=== PATIENT | female | born 1935 | race Caucasian/White ===

== ENCOUNTER 2019-04-12 14:03 | Outpatient (CLI) | payer MEDICARE, OTHER ==
[~2019-04-12 14:03] MED LIST: ASPI81TA45 PO; BOSE125T PO; CARB1TAB22 PO; DILT240C77 PO; FLUT9.9S INH; HYDR-3237 PO; LACT10SO28 PO; LACT1CAP35 PO; LANT1000 PO; LEVO88TA4 PO; LINA5TAB PO; MULT1TAB9 PO; MV-M1TAB29 PO; OMEG1CAP34 PO; OMEP-110 PO; POLY17PO5 PO; PRAV40TA2 PO; [UNRECOGNIZED DRUG - OTHER] PO
== END 2019-04-12 23:59 | disposition home or self-care (01) ==
LOC: CFH 14:03
PROVIDERS: ATTEND Internal Medicine Cardiovascular Disease
DX: I08.3 Combined rheumatic disorders of mitral, aortic and tricuspid valves (principal); I27.29 Other secondary pulmonary hypertension
CPT/HCPCS: 93306

== ENCOUNTER → 2019-09-05 | Outpatient (CLI) | payer MEDICARE, OTHER ==
[~2019-09-05] MED LIST changes: +ALPR0.5T7 PO; +CITA20TA6 PO; +ESTR0.5T3 VG; +GLIM1TAB7 PO; +IPRA3AMP30 INH; +METOPROLOL 1 MG/ML, 5ML ONE; +PLEASE ENTER HEIGHT AND WEIGHT MC SCH; +SITA100T PO; +SODIUM CHLORIDE 0.9% 1,000 ML IV SCH; +VISIPAQUE 320 MG/ML, 150ML BOTTLE ONE
== END | disposition home or self-care (01) ==
LOC: CVU 09:43
PROVIDERS: ATTEND Internal Medicine Cardiovascular Disease
DX: K76.0 Fatty (change of) liver, not elsewhere classified (principal); I65.23 Occlusion and stenosis of bilateral carotid arteries; I25.10 Atherosclerotic heart disease of native coronary artery without angina pectoris; J90 Pleural effusion, not elsewhere classified; N20.0 Calculus of kidney; N28.1 Cyst of kidney, acquired; R59.0 Localized enlarged lymph nodes; I31.3 Pericardial effusion (noninflammatory); I51.7 Cardiomegaly; J98.11 Atelectasis; R16.0 Hepatomegaly, not elsewhere classified; K86.89 Other specified diseases of pancreas; I77.1 Stricture of artery; I77.4 Celiac artery compression syndrome; R18.8 Other ascites; M51.36 Other intervertebral disc degeneration, lumbar region
CPT/HCPCS: 71275; 74174; 93880; 94060; 94729; Q9967